=== PATIENT | male | born 2000 | race Caucasian/White ===

== ENCOUNTER 2019-06-30 01:09 | Emergency (ER) | payer OTHER ==
[2019-06-30] MEDS ORDERED: guaiFENesin/D-METHORPHAN HB 10 ML UNIT-DOSE CUPS PO ONE (01:34)
[2019-06-30] MEDS ORDERED: SODIUM CHLORIDE FOR INHALATION 3 ML VIAL.NEB IH ONE (01:34)
--- NOTE | 2019-06-30 01:39 | PDOC ---
Discharge - Discharge Information Problems reviewed: Yes Clinical Impression/Diagnosis: Cough Condition: Fair - Follow up/Referral - Patient Discharge Instructions - Post Discharge Activity
[2019-06-30 01:41] VITALS: BP 137/85; PULSE 76; TEMP 97.9; BMI 39.4
--- NOTE | 2019-06-30 01:41 | PDOC ---
Medical Decision Making - Medical Decision Making 06/30/19 01:40 Pt received on sign out from CADENCE Felipe. 18 y/o male with no PMH presenting with cough for 3 weeks. Goes between dry and productive cough with phelgm. No nasal congestion. No chest pain, no vomiting. Saw PCP last week and given claritin and albuterol nebs. Afebrile. -saline neb -robitussin -CXR 06/30/19 02:53 CXR appears negative, does not show signs of pneumonia. Patient reports that his breathing is much better after saline nebs, and cough improved after robitussin. D/c home with over the counter meds. Mom has nebulizer machine at home. Discharge - Discharge Information Problems reviewed: Yes Clinical Impression/Diagnosis: Viral URI Condition: Stable Disposition: HOME - Admission No - Follow up/Referral - Patient Discharge Instructions Additional Instructions: Please take robitussin for your cough (follow instructions on the package). You may use a humidifier or put water into your nebulizer machine at home for relief. If you experience any new, worsening, or concerning symptoms, please return to the emergency room. - Post Discharge Activity
--- NOTE | 2019-06-30 01:46 | PDOC ---
History of Present Illness - General Chief Complaint: Cold Symptoms Stated Complaint: COUGH & CONGESTION Time Seen by Provider: 06/30/19 01:33 History Source: Patient Exam Limitations: No Limitations Past History - Past Medical History Allergies/Adverse Reactions: Allergies Allergy/AdvReac Type Severity Reaction Status Date / Time No Known Allergies Allergy Verified 06/30/19 01:41 Home Medications: Ambulatory Orders Ibuprofen [Motrin -] 600 mg PO TID #21 tablet 07/18/13 No Home Medications 0 dose .ROUTE UTDICT 07/18/13 - Psycho Social/Smoking Cessation Hx Smoking History: Current some day smoker Have you smoked in the past 12 months: Yes Information on smoking cessation initiated: No Hx Alcohol Use: Yes Drug/Substance Use Hx: No Substance Use Type: None *Physical Exam - Vital Signs Last Vital Signs Temp Pulse Resp BP Pulse Ox 97.9 F 76 19 137/85 100 06/30/19 01:09 06/30/19 01:09 06/30/19 01:09 06/30/19 01:09 06/30/19 01:09 - Physical Exam General Appearance: No: Apparent Distress HEENT: positive: Normal Voice. negative: Muffled/Hoarse voice, Pharyngeal Erythema, Tonsillar Exudate, Tonsillar Erythema, Nasal Congestion, Rhinorrhea, Sinus Tenderness Respiratory/Chest: positive: Lungs Clear, Normal Breath Sounds. negative: Respiratory Distress Cardiovascular: positive: Regular Rhythm, Regular Rate, S1, S2. negative: Murmur Gastrointestinal/Abdominal: positive: Normal Bowel Sounds, Soft. negative: Tender, Distended, Guarding, Rebound Integumentary: positive: Normal Color Neurologic: positive: Alert, Normal Mood/Affect ED Treatment Course - RADIOLOGY Radiology Studies Ordered: Category Date Time Status CHEST PA & LAT [RAD] Stat Radiology 06/30/19 01:34 Ordered Medical Decision Making - Medical Decision Making 18 y/o M with no sig pmh presents with cough x 3 weeks, can be dry or with phlegm at times. States saw his PCP last week who prescribed him Claritin and Albuterol neb which have not helped. Mentions feeling a lot of phlegm in this throat which causes him to cough more, especially at night, and can almost make it feel like he can't breathe. Denies fever, rhinorrhea, congestion, sneezing, watery eyes, cp, abd pain, n/v. Has not tried any OTC cough meds yet. Likely viral URI Plan: CXR, saline neb, Robitussin, reassess Patient signed out to Dr. Matos pending CXR, meds and re-eval 06/30/19 01:43 Discharge - Discharge Information Problems reviewed: Yes Clinical Impression/Diagnosis: Viral URI Condition: Stable - Follow up/Referral - Patient Discharge Instructions - Post Discharge Activity
[2019-06-30] MEDS ORDERED: guaiFENesin 200 MG/10 ML 10 ML UNIT-DOSE CUPS ONE (02:18)
== END 2019-06-30 03:02 | disposition home or self-care (01) ==
LOC: JER 01:09
PROC: 3E0F7GC Introduction of Other Therapeutic Substance into Respiratory Tract, Via Natural or Artificial Opening (ICD-10-PCS; principal; 2019-06-30)
DX: J06.9 Acute upper respiratory infection, unspecified (principal); B97.89 Other viral agents as the cause of diseases classified elsewhere; F17.210 Nicotine dependence, cigarettes, uncomplicated
CPT/HCPCS: 71046-TC-FY; 99281-25

== ENCOUNTER 2022-05-13 22:30 | Emergency (ER) | payer OTHER ==
[2022-05-13 22:46] VITALS: BP 144/84; PULSE 104; RESP 20; TEMP 98.9; BMI 37.5
[2022-05-13] MEDS ORDERED: IBUPROFEN 600 MG TABLET (FP) PO ONE ×2 (23:21→23:22)
== END 2022-05-14 00:14 | disposition home or self-care (01) ==
LOC: JER 22:30
DX: U07.1 COVID-19 (principal)
CPT/HCPCS: 0241U-QW; 99283-25